=== PATIENT | male | born 1995 | race Caucasian/White ===

== ENCOUNTER 2016-12-23 20:38 | Emergency (ER) | payer OTHER ==
[~2016-12-23] VITALS: Ht 177.8 cm; Wt 72.6 kg
[2016-12-23 20:46] VITALS: BP 147/98
[2016-12-23] MEDS ORDERED: IBUPROFEN600 MG ORAL (21:10)
--- NOTE | 2016-12-23 21:11 | Emergency Room Report ---
History of Present Illness General Chief Complaint: Medical Clearance Source: Patient, EMS Present Illness HPI Is a 21-year-old male with a history of chronic headache. He is brought in by police for medical clearance for chronic headache. Denies any fever chills denies any nausea vomiting. Pain is every day. Throbbing in nature. No change from before. Pain is 8/10. Has not anything for this. He said he get headache every day. No other complaint. No injury Allergies: Coded Allergies: No Known Allergies (Unverified , 12/23/16) Patient History Past Medical History: see triage record, old chart reviewed Past Surgical History: none Pertinent Family History: none Social History: Denies: smoking Immunizations: other Reviewed Nursing Documentation: PMH: Agreed, PSxH: Agreed Nursing Documentation-PMH History Of Psychiatric Problem: Yes - BIPOLAR Review of Systems Eye: Denies: blurred vision, eye pain ENT: Denies: ear pain, nose congestion, throat swelling Respiratory: Denies: cough, shortness of breath Cardiovascular: Denies: chest pain, palpitations Gastrointestinal: Denies: abdominal pain, diarrhea, nausea, vomiting Musculoskeletal: Denies: back pain, joint pain Skin: Denies: rash Neurological: Reports: headache, Denies: numbness Endocrine: Denies: increased thirst, increased urine Hematologic/Lymphatic: Denies: easy bruising All Other Systems: negative except mentioned in HPI Physical Exam Vital Signs Date Time Temp Pulse Resp B/P Pulse Ox O2 Delivery O2 Flow Rate FiO2 12/23/16 20:33 98.2 85 18 147/98 98 Room Air vitals normal Sp02 EP Interpretation: reviewed, normal General Appearance: well appearing, no apparent distress, alert Head: normocephalic, atraumatic Eyes: bilateral eye EOMI, bilateral eye PERRL ENT: hearing grossly normal, normal pharynx Neck: full range of motion, supple, no meningismus Respiratory: chest non-tender, lungs clear, normal breath sounds Cardiovascular #1: regular rate, rhythm, no murmur Gastrointestinal: normal bowel sounds, non tender, no mass, no organomegaly, no bruit, non-distended Musculoskeletal: back normal, gait/station normal, normal range of motion Psychiatric: mood/affect normal Skin: warm/dry Medical Decision Making Diagnostic Impression: Primary Impression: Headache Qualified Codes: R51 - Headache ER Course Patient with chronic headache. No change in frequency or duration. No evidence of meningitis, TIA, CVA, bleed or neoplastic process. We'll discharge to the police. Last Vital Signs Date Time Temp Pulse Resp B/P Pulse Ox O2 Delivery O2 Flow Rate FiO2 12/23/16 20:46 98.2 18 147/98 98 Room Air 12/23/16 20:33 85 Status: improved Disposition: HOME, SELF-CARE Condition: Stable Scripts Ibuprofen* (MOTRIN*) 600 Mg Tablet 600 MG ORAL Q8H Y for For Pain, #30 TAB 0 Refills Prov: GUSTAVO BARRAGAN M.D. 12/23/16 Additional Instructions: Followup with your Dr. in 7 days. Abstain from drugs and alcohol. Return worse. GUSTAVO BARRAGAN M.D. December 23, 2016 21:11
[2016-12-23 21:14] VITALS: BP 147/98
== END 2016-12-23 21:14 | disposition home or self-care (01) ==
LOC: EDBD 20:38 → EMR 21:08
DX: R05 Cough (principal); Z86.59 Personal history of other mental and behavioral disorders
CPT/HCPCS: 99283